=== PATIENT | female | born 1970 | race Hispanic/Latino ===

== ENCOUNTER 2017-09-11 12:46 | Inpatient (IN) | payer BC ==
[2017-09-11] MEDS ORDERED: levoFLOXacin 750 mg in D5W 150 ML BAG IVPB STA (13:38)
[2017-09-11] MEDS ORDERED: Sodium Chloride 0.9% 1,000 ML IV STA (13:38)
--- NOTE | 2017-09-11 13:53 | ED PDOC ---
Arrival/HPI - General Chief Complaint: Female Genitourinary Time Seen by Provider: 09/11/17 12:50 Historian: Patient - History of Present Illness Narrative History of Present Illness (Text): 09/11/17 13:30 47 year old female who presents complaining of right sided back pain for a couple of days and was advised to come here by Dr. Neves. Patient reports she's had right sided back pain associated with fever, headache, and nausea. She also reports her body going "jelly" due to to back pain and pain gets better when she lays down. Additionally, she notes having foul smelling urine and loss of appetite. No other complaints were made. PMD: Dr. Villa Time/Duration: < week Symptom Onset: Gradual Symptom Course: Unchanged Context: Home Past Medical History - Provider Review Nursing Documentation Reviewed: Yes - Reproductive Menopause: Yes - Genitourinary/Gynecological Other/Comment: Breast Ca rt - Psychiatric Hx Psychophysiologic Disorder: No Hx Substance Use: No - Surgical History Hx Mastectomy: Yes (rt) - Anesthesia Hx Anesthesia: No Family/Social History - Physician Review Nursing Documentation Reviewed: Yes Family/Social History: Unknown Family HX Smoking Status: Unknown If Ever Smoked Hx Alcohol Use: Yes Frequency of alcohol use: Socially Hx Substance Use: No Allergies/Home Meds Allergies/Adverse Reactions: Allergies ampicillin Allergy (Verified 09/11/17 13:14) RASH Home Medications: Home Meds Medication Instructions Recorded Confirmed Anastrozole [Arimidex] 1 mg PO DAILY 09/11/17 09/11/17 Cholecalciferol [Vitamin D] 2,000 unit PO DAILY 09/11/17 09/11/17 Review of Systems - Review of Systems Constitutional: Fevers. absent: Fatigue Respiratory: absent: SOB, Cough Cardiovascular: absent: Chest Pain Gastrointestinal: Nausea, Appetite Changes (loss of appetite). absent: Abdominal Pain Genitourinary Female: Other (foul smelling urine) Musculoskeletal: Back Pain (right lower back pain) Skin: absent: Rash Neurological: Headache Endocrine: absent: Diaphoresis Physical Exam Vital Signs Reviewed: Yes Vital Signs Temp Pulse Resp BP Pulse Ox 09/11/17 15:40 88 18 105/65 98 09/11/17 13:07 102.7 F H 112 H 18 104/69 98 Temperature: Febrile Blood Pressure: Normal Pulse: Tachycardic Respiratory Rate: Normal Appearance: Positive for: Well-Appearing, Non-Toxic, Comfortable Pain Distress: None Mental Status: Positive for: Alert and Oriented X 3 - Systems Exam Head: Present: Atraumatic, Normocephalic Pupils: Present: PERRL Extroacular Muscles: Present: EOMI Conjunctiva: Present: Normal Respiratory/Chest: Present: Clear to Auscultation, Good Air Exchange. No: Respiratory Distress, Accessory Muscle Use, Wheezes, Rales, Rhonchi Cardiovascular: Present: Regular Rate and Rhythm, Normal S1, S2. No: Murmurs Abdomen: Present: Normal Bowel Sounds. No: Tenderness, Distention, Peritoneal Signs, Rebound, Guarding Back: Present: CVA Tenderness (right sided CVA tenderness) Lower Extremity: Present: Normal Inspection, NORMAL PULSES, Normal ROM, Neurovascularly Intact, Capillary Refill < 2 s. No: Edema, Cyanosis, Tenderness , Swelling, Erythema, Deformity Neurological: Present: GCS=15, CN II-XII Intact, Speech Normal Skin: Present: Warm, Dry, Normal Color. No: Rashes Psychiatric: Present: Alert, Oriented x 3, Normal Insight, Normal Concentration Medical Decision Making ED Course and Treatment: 09/11/17 Impression: 47 year old female with right sided CVA tenderness complaining of low back pain and fever. Differential Diagnosis included but are not limited to: UTI vs. pylonephritis r /o kidney stone Plan: -- CT abdomen and pelvis -- Labs -- Urinalysis -- Levaquin and Tylenol -- Reassess and disposition Progress Notes: 09/11/17 17:32 Accession No. : [id number] Patient Name / ID : RANDAL GARCIA / [id number] Exam Date : 09/11/2017 16:50:54 ( Approved ) Study Comment : Sex / Age : F / 47Y Creator : Erlinda Bang MD PROCEDURE: CT Abdomen and Pelvis without Oral or IV contrast. IMPRESSION: Distended urinary bladder. No obstructing calculus or hydronephrosis identified. Moderate diffuse constipation. The appendix is not definitively identified. There are no secondary signs of acute appendicitis. Patient has no kidney stones or hydro on CT. Treated with IV Levaquin. Case discussed with Dr. Neves who will admit to Dr. Villa. Case discussed with Dr. Marcelo for observation for Pyelonephritis. - Lab Interpretations Lab Results: 09/11/17 14:25 09/11/17 14:25 Lab Results 09/11/17 14:40: Urine Color Yellow, Urine Appearance Cloudy, Urine pH 6.0, Ur Specific [place] 1.010, Urine Protein 30 H, Urine Glucose (UA) Negative, Urine Ketones Negative, Urine Blood Moderate H, Urine Nitrate Positive H, Urine Bilirubin Negative, Urine Urobilinogen 0.2, Ur Leukocyte Esterase Large H, Urine RBC 0 - 2, Urine WBC Tntc, Ur Epithelial Cells 0 - 2, Urine Bacteria Many 09/11/17 14:25: Sodium 138, Chloride 97 L, Potassium 4.0, Carbon Dioxide 31, Anion Gap 15, BUN 10, Creatinine 0.8, Est GFR ( Amer) > 60, Est GFR (Non- Af Amer) > 60, Random Glucose 125 H, Calcium 9.9, Phosphorus 3.1, Magnesium 1.8 09/11/17 14:25: pO2 28 L, VBG pH 7.41, VBG pCO2 51.0, VBG HCO3 32.3 H, VBG Total CO2 33.9 H, VBG O2 Sat (Calc) 59.4, VBG Base Excess 6.3 H, VBG Potassium 4.2, Sodium 134.0, Chloride 100.0, Glucose 127 H, Lactate 0.6 L, FiO2 21.0, Venous Blood Potassium 4.2 09/11/17 14:25: WBC 8.0, RBC 4.29, Hgb 13.2, Hct 38.2, MCV 89.0, MCH 30.8, MCHC 34.6, RDW 12.3, Plt Count 146, MPV 9.9, Gran % 82.0 H, Lymph % (Auto) 10.1 L, [place] % (Auto) 7.8 H, Eos % (Auto) 0.0 L, Baso % (Auto) 0.1, Gran # 6.55 H, Lymph # (Auto) 0.8 L, [place] # (Auto) 0.6, Eos # (Auto) 0.0, Baso # (Auto) 0.01 I have reviewed the lab results: Yes - RAD Interpretation Radiology Orders: 09/11/17 13:39 ABD & PELVIS W/O PO OR IV CONT [CT] Stat System Manager: Radiologist - Medication Orders Current Medication Orders: Discontinued Medications Acetaminophen (Tylenol 325mg Tab) 975 mg PO STAT STA Stop: 09/11/17 13:39 Last Admin: 09/11/17 14:26 Dose: 975 mg Sodium Chloride (Sodium Chloride 0.9%) 1,000 mls @ 999 mls/hr IV .Q1H1M STA Stop: 09/11/17 14:38 Last Admin: 09/11/17 14:26 Dose: 999 mls/hr eMAR Start Stop Document 09/11/17 14:26 SF (Rec: 09/11/17 14:26 SF [id number]) Intravenous Solution Start Date 09/11/17 Start Time 14:26 End Date 09/11/17 End time 15:27 Total Infusion Time 61 Ketorolac Tromethamine (Toradol) 30 mg IVP STAT STA Stop: 09/11/17 15:21 Last Admin: 09/11/17 16:39 Dose: 30 mg MAR Pain Assessment Document 09/11/17 16:39 SF (Rec: 09/11/17 16:39 SF [id number]) Pain Reassessment Is this a pain reassessment? Yes Sleep Is patient sleeping during reassessment? No IVP Administration Document 09/11/17 16:39 SF (Rec: 09/11/17 16:39 SF [id number]) Charges for Administration # of IVP Administrations 1 Levofloxacin/Dextrose (Levaquin 750mg) 750 mg IVPB STAT STA Stop: 09/11/17 13:39 Last Admin: 09/11/17 14:25 Dose: 750 mg eMAR Start Stop Document 09/11/17 14:25 SF (Rec: 09/11/17 14:26 SF [id number]) Intravenous Solution Start Date 09/11/17 Start Time 14:25 End Date 09/11/17 - Scribe Statement The provider has reviewed the documentation as recorded by the Anthony Brown Provider Scribe Attestation: All medical record entries made by the Scribe were at my direction and personally dictated by me. I have reviewed the chart and agree that the record accurately reflects my personal performance of the history, physical exam, medical decision making, and the department course for this patient. I have also personally directed, reviewed, and agree with the discharge instructions and disposition. Disposition/Present on Arrival - Present on Arrival Any Indicators Present on Arrival: No History of DVT/PE: No History of Uncontrolled Diabetes: No Urinary Catheter: No History of Decub. Ulcer: No History Surgical Site Infection Following: None - Disposition Have Diagnosis and Disposition been Completed?: Yes Diagnosis: Pyelonephritis Disposition: HOSPITALIZED Disposition Time: 17:34 Patient Plan: Observation Condition: FAIR Forms: [employer] (Khmer)
[2017-09-11 15:03] LABS: VENOUS BLOOD GAS BASE EXCESS 6.3 mmol/L (0.0-2.0); VENOUS BLOOD GAS PO2 28 mm/Hg (30-55); VENOUS BLOOD PH 7.41 (7.32-7.43)
[2017-09-11 15:04] LABS: BASO # 0.01 K/mm3 (0.0-2.0); BASO % 0.1 % (0.0-3.0); GRAN # 6.55 (1.4-6.5); HEMOGLOBIN 13.2 g/dL (12.0-16.0); LYMPH # 0.8 (1.2-3.4); LYMPH % 10.1 % (22.0-35.0); MEAN CORPUSCULAR HEMOGLOBIN 30.8 pg (25.0-35.0); MEAN CORPUSCULAR HGB CONC 34.6 g/dl (31.0-37.0); MEAN PLATELET VOLUME 9.9 fl (7.0-11.0); MONO # 0.6 (0.1-0.6); MONO % 7.8 % (1.0-6.0); RBC 4.29 10^6/uL (3.5-6.1); RED CELL DISTRIBUTION WIDTH 12.3 % (11.5-14.5)
[2017-09-11 15:11] LABS: URINE BILIRUBIN NEGATIVE (NEGATIVE); URINE BLOOD MODERATE (NEGATIVE); URINE GLUCOSE (UA) NEGATIVE (NEGATIVE); URINE LEUKOCYTE ESTERASE LARGE Leu/uL (NEGATIVE); URINE NITRATE POSITIVE (NEGATIVE); URINE PROTEIN 30 mg/dL (<30 mg/dL); URINE UROBILINOGEN 0.2 E.U./dL (<1 E.U./dL)
[2017-09-11 15:11] LABS: BLOOD UREA NITROGEN 10 mg/dL (7-21); CALCIUM 9.9 mg/dL (8.4-10.5); GFR AFRICAN-AMERICAN > 60; GFR NON-AFRICAN AMERICAN > 60; MAGNESIUM 1.8 mg/dL (1.7-2.2)
[2017-09-11 15:16] LABS: URINE APPEARANCE CLOUDY (CLEAR); URINE COLOR YELLOW (YELLOW)
[2017-09-11 15:29] LABS: URINE BACTERIA MANY (NEG); URINE EPITHELIAL CELLS 0 - 2 /hpf (0-5); URINE RBC 0 - 2 /hpf (0-2); URINE WBC TNTC /hpf (0-6)
--- NOTE | 2017-09-11 17:31 | CT ---
PROCEDURE: CT Abdomen and Pelvis without Oral or IV contrast. HISTORY: right flank pain r/o kidney stone COMPARISON: None available. TECHNIQUE: Contiguous axial images of the abdomen and pelvis. No oral or IV contrast administered. Coronal and Sagittal reformats generated and reviewed. Radiation dose: Total exam DLP = 367.84 mGy-cm. This CT exam was performed using one or more of the following dose reduction techniques: Automated exposure control, adjustment of the mA and/or kV according to patient size, and/or use of iterative reconstruction technique. FINDINGS: There is limited evaluation of the solid organs without the administration of IV contrast. LOWER THORAX: No visible consolidation, pleural effusion, or pneumothorax. Right breast prosthesis. LIVER: Unremarkable unenhanced appearance. GALLBLADDER AND BILE DUCTS: Unremarkable unenhanced appearance PANCREAS: Unremarkable unenhanced appearance SPLEEN: Unremarkable unenhanced appearance ADRENALS: Unremarkable unenhanced appearance KIDNEYS AND URETERS: No hydronephrosis or obstructing renal calculus. BLADDER: Distended urinary bladder. REPRODUCTIVE: Uterus is present. APPENDIX: No secondary signs of acute appendicitis. BOWEL: The stomach is nondistended. Lack of oral contrast limits evaluation for bowel pathology. The bowel loops appear within normal limits of caliber without evidence of intestinal obstruction. Moderate diffuse constipation. PERITONEUM: No significant free fluid. No definite free air. LYMPH NODES: No bulky lymphadenopathy identified. VASCULATURE: No aortic aneurysm. BONES: Bilateral L5 spondylolysis. OTHER FINDINGS: Pelvic calcifications, likely phleboliths. IMPRESSION: Distended urinary bladder. No obstructing calculus or hydronephrosis identified. Moderate diffuse constipation. The appendix is not definitively identified. There are no secondary signs of acute appendicitis.
[2017-09-11] MEDS ORDERED: Sodium Chloride 0.9% 1,000 ML IV SCH (18:00)
[2017-09-12 03:32] VITALS: BMI 23.6
[2017-09-12] MEDS ORDERED: Pneumococcal 23-Valent Vaccine IM ONE (03:33)
[2017-09-12] MEDS ORDERED: levoFLOXacin 500 mg in D5W 500 MG/100 ML BAG IVPB SCH (10:00)
[2017-09-12] MEDS: Aztreonam 1 Gm in NS 100mL 100 ML IVPB SCH ×3 (10:24→21:43)
[2017-09-12] MEDS: Vancomycin 1gm in NS 250ml 1 GM/250 ML BAG IVPB SCH ×2 (10:24→23:08)
--- NOTE | 2017-09-12 21:32 | CP.PCM.CON ---
History of Present Illness - History of Present Illness History of Present Illness: 47 year old female with PMH of breast cancer S/P mastectomy came in to [facility] complaining of right sided flank pain as well as increased urinary frequency for the past 2-3 days, associated with generalized weakness, fever and chills. She states that she has not had antibiotics in the past 3 months and has not been hospitalized in the past [address] A/P is showing distended urinary bladder, while urine cx is showing gram negative bacilli. Infectious Diseases consult is requested to further evaluate and manage. She has occasional headaches, no nausea or vomiting, no chest pain, no dizziness, no abdominal pain, no cough or colds, no rhinorrhea, no sore throat, no diarrhea. Review of Systems - Review of Systems All systems: reviewed and no additional remarkable complaints except (as per HPI ) Past Patient History - Past Social History Smoking Status: Never Smoked - CARDIAC Hx Cardiac Disorders: No - PULMONARY Hx Respiratory Disorders: No - NEUROLOGICAL Hx Neurological Disorder: No - HEMATOLOGICAL/ONCOLOGICAL Hx Cancer: Yes (right breast CA 2014) Hx Chemotherapy: Yes (2014) Other/Comment: radiation 2015 - MUSCULOSKELETAL/RHEUMATOLOGICAL Hx Musculoskeletal Disorders: No Hx Falls: No - GASTROINTESTINAL Hx Gastrointestinal Disorders: No - GENITOURINARY/GYNECOLOGICAL Hx Urinary Tract Infection: Yes - PSYCHIATRIC Hx Psychophysiologic Disorder: No Hx Substance Use: No - SURGICAL HISTORY Hx Mastectomy: Yes (right total) - ANESTHESIA Hx Anesthesia: No Meds Allergies/Adverse Reactions: Allergies Allergy/AdvReac Type Severity Reaction Status Date / Time ampicillin Allergy RASH Verified 09/11/17 13:14 - Medications Medications: Current Medications Acetaminophen (Tylenol 325mg Tab) 650 mg PO Q4H PRN PRN Reason: Fever >100.4 F Last Admin: 09/11/17 22:36 Dose: 650 mg Acetaminophen (Tylenol 325mg Tab) 650 mg PO Q4H PRN PRN Reason: Fever >100.5 F Last Admin: 09/12/17 05:41 Dose: 650 mg Anastrozole (Arimidex 1 Mg Tab) 1 mg PO DAILY STEFFANY Levofloxacin/Dextrose (Levaquin 500mg) 500 mg in 100 mls @ 100 mls/hr IVPB DAILY STEFFANY PRN Reason: Protocol Ondansetron HCl (Zofran Inj) 4 mg IVP Q4H PRN PRN Reason: Nausea/Vomiting Physical Exam - Constitutional Appears: Chronically Ill - Head Exam Head Exam: NORMAL INSPECTION - ENT Exam ENT Exam: Mucous Membranes Moist - Neck Exam Neck exam: Negative for: Meningismus - Respiratory Exam Respiratory Exam: Decreased Breath Sounds - Cardiovascular Exam Cardiovascular Exam: +S1, +S2 - GI/Abdominal Exam GI & Abdominal Exam: Soft. absent: Tenderness Results - Vital Signs Recent Vital Signs: Last Vital Signs Temp 100.6 F H 09/12/17 07:00 Pulse 83 09/12/17 07:00 Resp 18 09/12/17 07:00 BP 103/67 09/12/17 07:00 Pulse Ox 97 09/12/17 07:00 - Labs Result Diagrams: 09/11/17 14:25 09/11/17 14:25 Assessment & Plan - Assessment and Plan (Free Text) Plan: Assessment Consider sepsis due to upper urinary tract infection / pyelonephritis with gram negative bacilli breast cancer S/P mastectomy Plan Started the patient on Vancomycin and Azactam pending identification and sensitivities of the gram negative bacilli in the urine; follow up blood cx; reviewed CT A/P will monitor clinically and trend fever curve
--- NOTE | 2017-09-12 23:38 | HP ---
CHIEF COMPLAINT AND HISTORY OF PRESENT ILLNESS: This is a 47-year-old female, who has come into the hospital complaining of back pain, dysuria and fevers. She was seen by her primary care doctor, Dr. Neves and was advised to go to the ER because of possible urinary tract infection. The patient was complaining of having a jelly like sensation that was in her back and states that the pain does get better when she lays down. She is also complaining of foul smelling urine. She had decrease in her appetite. The patient has no complaints of any headaches, dizziness or nausea. No chest pain or shortness of breath. REVIEW OF SYSTEMS: All other review of symptoms are within normal limits except as mentioned. PAST MEDICAL HISTORY: Breast cancer. SOCIAL HISTORY: The patient does not smoke or drink. FAMILY HISTORY: Noncontributory. ALLERGIES: AMPICILLIN. HOME MEDICATIONS: Arimidex and vitamin D. PHYSICAL EXAMINATION: VITAL SIGNS: Patient's T-max is 102.7, repeat is 100.1, pulse of 86, blood pressure 115/75, respirations 18, O2 saturation 97%. Height is 5 feet 4 inches, weight is 138 pounds, BMI is 23.7. GENERAL: The patient lying in bed, uncomfortable, and in no acute distress. HEENT: Atraumatic and normocephalic. Anicteric sclerae. Moist mucosa. [place] conjunctivae. No oral lesions. NECK: No JVD, anterior and posterior adenopathy, thyromegaly, or bruits. CARDIOVASCULAR: S1 and S2 regular. No murmur, rubs, or gallop. LUNGS: Clear to auscultation bilaterally. No wheezes, rales, or rhonchi. ABDOMEN: Bowel sounds are positive. Soft, nontender and nondistended. No hepatosplenomegaly. No rebound and no guarding EXTREMITIES: No cyanosis, clubbing, or edema. NEUROLOGIC: No facial asymmetry. Tongue is midline. No uvula deviation. Power is 5/5 upper extremity and lower extremity. Sensation intact in upper extremity and lower extremity. PSYCHIATRIC: She is awake, alert and oriented x3. No anxiety or depression. She has normal affect. GENITOURINARY: No CVA tenderness. VASCULAR: 2+ pulses in the carotid pulses and pedal pulses. SKIN: No erythema or nodules SPINE: Shows normal curvature. LABORATORY DATA: White count of 8.0. Chemistry shows a creatinine of 0.8. Patient's urine shows nitrites are positive, blood is moderate, esterase is large, bacteria is many. The patient's abdominal CAT scan done shows distended urinary bladder, no obstructing calculus or hydronephrosis, moderate diffuse . ASSESSMENT: 1. Urinary tract infection. 2. History of breast cancer. 3. PENICILLIN ALLERGY. 4. Sepsis. PLAN: The patient is going to be admitted to the hospital. The patient is on aztreonam because of her PENICILLIN ALLERGY. She has a high-grade fever. She has urinary symptoms. She does not have elevated white count, however, she has increase in granulocytes. The patient was given Levaquin but is not responding because of continued fevers. The patient is on vancomycin IV as well. We will await for urinary cultures and blood cultures to come back. I am concerned about sepsis as well because of the high-grade fevers. Patient is going to be on a regular diet. She has obliged to stay in the hospital or if she is interested in leaving, so she can be treated as an outpatient. I explained to the patient that she has ALLERGY TO AMPICILLIN and she is still having fevers on the Levaquin and should probably stay for IV antibiotics. I also spoke to Dr. Neves. We will await for the culture results and then change to p.o. antibiotics once the organism has been isolated. Juan Carlos Villa MD
[2017-09-13] MEDS: Aztreonam 1 Gm in NS 100mL 100 ML IVPB SCH ×3 (05:54→21:09)
[2017-09-13 07:41] VITALS: RESP 20
[2017-09-13] MEDS: Vancomycin 1gm in NS 250ml 1 GM/250 ML BAG IVPB SCH (10:32)
--- NOTE | 2017-09-13 13:53 | CP.PCM.PN ---
Subjective - Date & Time of Evaluation Date of Evaluation: 09/13/17 Time of Evaluation: 12:20 - Subjective Subjective: Feeling better, still with low grade fevers yesterday afternoon, not in distress. Objective - Vital Signs/Intake and Output Vital Signs (last 24 hours): Temp Pulse Resp BP Pulse Ox 100.1 F H 86 18 115/75 97 09/12/17 16:00 09/12/17 16:00 09/12/17 16:00 09/12/17 16:00 09/12/17 16:00 - Medications Medications: Current Medications Acetaminophen (Tylenol 325mg Tab) 650 mg PO Q4H PRN PRN Reason: Fever >100.4 F Last Admin: 09/11/17 22:36 Dose: 650 mg Acetaminophen (Tylenol 325mg Tab) 650 mg PO Q4H PRN PRN Reason: Pain, Mild (1-3) Last Admin: 09/12/17 17:45 Dose: 650 mg Anastrozole (Arimidex 1 Mg Tab) 1 mg PO DAILY [facility] Last Admin: 09/12/17 10:29 Dose: Not Given Aztreonam (Azactam 1 Gm) 100 mls @ 100 mls/hr IVPB Q8 STEFFANY PRN Reason: Protocol Stop: 09/19/17 10:01 Last Admin: 09/12/17 15:47 Dose: 100 mls/hr Vancomycin HCl (Vancomycin 1gm) 1 gm in 250 mls @ 167 mls/hr IVPB Q12H STEFFANY PRN Reason: Protocol Last Admin: 09/12/17 10:24 Dose: 167 mls/hr Ondansetron HCl (Zofran Inj) 4 mg IVP Q4H PRN PRN Reason: Nausea/Vomiting - Constitutional Appears: Non-toxic, Chronically Ill - Head Exam Head Exam: NORMAL INSPECTION - ENT Exam ENT Exam: Mucous Membranes Moist - Neck Exam Neck Exam: absent: Meningismus - Respiratory Exam Respiratory Exam: Decreased Breath Sounds - Cardiovascular Exam Cardiovascular Exam: +S1, +S2 - GI/Abdominal Exam GI & Abdominal Exam: Soft. absent: Tenderness Assessment and Plan - Assessment and Plan (Free Text) Plan: Assessment Consider sepsis due to upper urinary tract infection / pyelonephritis with E. coli breast cancer S/P mastectomy Plan continue Azactam day 2; blood cx are negative; reviewed CT A/P will continue monitor clinically and trend fever curve - once afebrile for more than 24 hours, can change to PO antibiotics
[2017-09-14] MEDS: Aztreonam 1 Gm in NS 100mL 100 ML IVPB SCH (06:40)
[2017-09-14 07:28] LABS: ALB/GLOB RATIO 1.2 (1.1-1.8); ALBUMIN 3.2 g/dL (3.0-4.8); ALT/SGPT 52 U/L (7-56); AST/SGOT 22 U/L (14-36); BLOOD UREA NITROGEN 7 mg/dL (7-21); CALCIUM 9.4 mg/dL (8.4-10.5); GFR AFRICAN-AMERICAN > 60; GFR NON-AFRICAN AMERICAN > 60
[2017-09-14 07:36] LABS: BASO # 0.01 K/mm3 (0.0-2.0); BASO % 0.2 % (0.0-3.0); EOS # 0.1 (0.0-0.7); EOS % 2.9 % (1.5-5.0); GRAN # 2.5 (1.4-6.5); GRAN % 56.8 % (50.0-68.0); LYMPH # 1.4 (1.2-3.4); LYMPH % 31.5 % (22.0-35.0); MEAN CELL VOLUME 88.8 fl (80.0-105.0); MEAN CORPUSCULAR HEMOGLOBIN 29.8 pg (25.0-35.0); MEAN CORPUSCULAR HGB CONC 33.5 g/dl (31.0-37.0); MEAN PLATELET VOLUME 9.5 fl (7.0-11.0); MONO # 0.4 (0.1-0.6); MONO % 8.6 % (1.0-6.0); RBC 3.76 10^6/uL (3.5-6.1); RED CELL DISTRIBUTION WIDTH 12.3 % (11.5-14.5); WHITE BLOOD COUNT 4.4 10^3/ul (4.5-11.0)
[2017-09-14 07:40] LABS: HEMOGLOBIN 11.2 g/dL (12.0-16.0)
[2017-09-14 08:27] VITALS: BP 122/81; PULSE 72; TEMP 98.6; O2SAT 99
--- NOTE | 2017-09-14 10:27 | DS ---
HISTORY OF PRESENT ILLNESS: The patient is 47 years old, seen and examined, anxious to go home. The patient came in with high-grade fever, flank pain. She does have history of CA breast, status post chemotherapy and breast reconstruction surgery. She has been postmenopausal. Her urine culture and blood culture done, both blood cultures are negative; however, urine is growing E. Coli. PHYSICAL EXAMINATION: GENERAL: She is awake, alert, oriented, communicative. VITAL SIGNS: She is afebrile today; however, she had 100.1 yesterday. Pulse 77, respirations 20, blood pressure 115/75. LUNGS: Bilateral good airflow. No rhonchi or crackle. HEART: S1 and S2 audible. ABDOMEN: Soft, nontender. No rebound. No guarding. NEUROLOGIC: The patient is awake and alert, communicative, ambulatory. LABORATORY DATA: Urine culture positive for E. coli. ASSESSMENT: 1. Escherichia coli urosepsis. 2. History of carcinoma of breast. 3. PENICILLIN ALLERGIES. PLAN: The patient is currently stable. Blood cultures are negative. I will order for CBC, CMP for a.m. If the patient remain afebrile for next 24 hours, she will be discharged in a.m. Mima Geronimo MD
--- NOTE | 2017-09-14 13:52 | CP.PCM.PN ---
Subjective - Date & Time of Evaluation Date of Evaluation: 09/14/17 Time of Evaluation: 11:05 - Subjective Subjective: Comfortable, afebrile for more than 24 hours now, no nausea, no diarrhea, urinating better and less frequently. Objective - Vital Signs/Intake and Output Vital Signs (last 24 hours): Temp Pulse Resp BP Pulse Ox 98.6 F 72 20 122/81 99 09/14/17 07:30 09/14/17 07:30 09/14/17 07:30 09/14/17 07:30 09/14/17 07:30 Intake and Output: 09/14/17 09/14/17 06:59 18:59 Intake Total 180 Balance 180 - Labs Labs: 09/14/17 06:30 09/14/17 06:30 - Constitutional Appears: Chronically Ill - Head Exam Head Exam: NORMAL INSPECTION - ENT Exam ENT Exam: Mucous Membranes Moist - Neck Exam Neck Exam: absent: Meningismus - Respiratory Exam Respiratory Exam: Decreased Breath Sounds. absent: Rales - Cardiovascular Exam Cardiovascular Exam: +S1, +S2 - GI/Abdominal Exam GI & Abdominal Exam: Soft. absent: Tenderness Assessment and Plan - Assessment and Plan (Free Text) Plan: Assessment Consider sepsis due to upper urinary tract infection / pyelonephritis with E. coli breast cancer S/P mastectomy Plan on Azactam day 3; blood cx are negative; reviewed CT A/P can complete therapy with PO Ciprofloxacin (complete 10-14 days total antibiotics) with outpatient follow up with PMD
--- NOTE | 2017-09-15 04:36 | DS ---
HISTORY OF PRESENT ILLNESS: The patient is a 47-Year-old, who came in with fever, chills, flank pain, was found to have E. coli UTI. The patient does have a history of CA of breast, status post right mastectomy and reconstruction surgery. PHYSICAL EXAMINATION: GENERAL: On examination today, she is awake, alert, oriented, communicative, afebrile for the last 24 hours. VITAL SIGNS: She is afebrile. Pulse 72, respirations 20, blood pressure 122/81. LUNGS: Bilateral fair airflow. No rhonchi or crackle. HEART: S1 and S2 audible. ABDOMEN: Soft, nontender. No rebound. No guarding. NEUROLOGIC: The patient is awake, alert, oriented, able to communicate, ambulatory. LABORATORY DATA: WBC is 4.4, hemoglobin 11.2, hematocrit 33.4, platelet of 164. Chemistry, sodium 142, potassium 4.1, chloride 106, CO2 of 27, BUN of 7, creatinine of 0.6, blood sugar of 105. ASSESSMENT: 1. History of pyelonephritis. 2. Escherichia coli urinary tract infection. 3. Carcinoma of breast, status post mastectomy. 4. Borderline hypotension. 5. HISTORY OF PENICILLIN ALLERGY. PLAN: The patient is clinically stable. She is afebrile. White count is within normal limits. E. coli is sensitive to Cipro. The patient is being discharged home on 1 more week of Cipro 500 twice a day. She will be followed by her primary care. Mima Geronimo MD
== END 2017-09-14 13:04 | disposition home or self-care (01) | DRG 690 ==
LOC: ED 12:46 → ERH 18:20 → 5RNO 20:43 → OBSVTOIN 09-12 16:42 → 5RNO 09-12 23:59
PROVIDERS: ADMIT Internal Medicine Nephrology; ATTEND Internal Medicine Nephrology
DX: N12 Tubulo-interstitial nephritis, not specified as acute or chronic (principal); B96.20 Unspecified Escherichia coli [E. coli] as the cause of diseases classified elsewhere; I95.9 Hypotension, unspecified; Z85.3 Personal history of malignant neoplasm of breast; Z90.11 Acquired absence of right breast and nipple; Z88.0 Allergy status to penicillin